=== PATIENT | female | born 1985 | race Caucasian/White ===

== ENCOUNTER → 2020-04-19 12:49 | Outpatient (BNVA) | payer BC, SELFPAY | PROVIDERS: Visit Provider Physician Assistant | DX: E66.9 Obesity, unspecified (principal); Z79.899 Other long term (current) drug therapy; Z98.84 Bariatric surgery status ==

== ENCOUNTER 2020-05-03 08:10 | Outpatient (REF) | payer BC, SELFPAY ==
--- NOTE | 2020-05-03 08:14 | FL_ITS ---
EXAMINATION: XR GI SERIES CLINICAL INFORMATION: Obesity. COMPARISON: None. TECHNIQUE: Routine upper GI air contrast study was performed in upright and lying position. FINDINGS: Following oral administration of thick barium and effervescent granules, there is normal propagation of bolus from the oral cavity through the pharynx and esophagus and into the stomach without intraluminal filling defect, narrowing or stricture. No laryngeal penetration or aspiration seen. On placing patient supine and prone lying, there is previous gastric reduction/surgical changes with a small stomach and widely patent gastrojejunal anastomosis. There is a large gastroesophageal reflux but no hiatal hernia seen. FLUOROSCOPY TIME: 1.1 minute. DOSE AREA PRODUCT: 20.978 uGy-m2 (microgray-meter squared). IMPRESSION: Status post gastric reduction surgery with widely patent gastrojejunal anastomosis with spontaneous emptying of gastric contents into the small bowel loops. There is [id number] gastroesophageal reflux but no hiatal hernia.
== END 2020-05-03 08:11 | disposition home or self-care (01) ==
LOC: HO.XRAY 08:10
PROVIDERS: PCP Internal Medicine; Visit Provider Surgery
DX: Z01.818 Encounter for other preprocedural examination (principal); E66.9 Obesity, unspecified; K21.9 Gastro-esophageal reflux disease without esophagitis
CPT/HCPCS: 74240

== ENCOUNTER → 2020-05-04 07:56 | Outpatient (BNVA) | payer BC, SELFPAY | PROVIDERS: PCP Internal Medicine; Visit Provider Physician Assistant | DX: Z76.89 Persons encountering health services in other specified circumstances (principal) ==

== ENCOUNTER 2020-05-25 11:43 | Day surgery (SDC) | payer BC, SELFPAY ==
[2020-05-19 19:25] VITALS: BMI 31.3
--- NOTE | 2020-05-24 09:27 | HO.ANESPROP2 ---
HPI - Anesthesia Eval Consult details Narrative: 35yo F for Upper Endoscopy PMFSH Past Medical History Medical History Anxiety Breast implant in situ Depression GERD (gastroesophageal reflux disease) IUD (intrauterine device) in place Obesity Family History Family History Father Whipple's disease Mother Breast cancer Type 2 diabetes mellitus Daughter No problems noted. Brother No problems noted. Brother No problems noted. Sister No problems noted. Surgical History Surgical History H/O abdominoplasty H/O gastric bypass Social History Social History Smoking Status: Never smoker Second Hand Smoke Exposure: No Meds Allergies Allergy/AdvReac Type Severity Reaction Status Date / Time No Known Allergies Allergy Verified 05/19/20 19:13 Home Medications Medication Instructions Recorded Confirmed Type bupropion HCl 300 mg 24 hr tablet, 300 mg PO QAM 04/19/20 05/19/20 History extended release levonorgestrel 20 mcg/24 hours (6 20 mcg INTRAUTERINE DAILY 04/19/20 05/19/20 History yrs) 52 mg intrauterine device sertraline 100 mg tablet 100 mg PO DAILY 04/19/20 05/19/20 History trazodone 100 mg tablet 100 mg PO BEDTIME PRN 04/19/20 05/19/20 History Exam Exam Date and Time: May 24, 2020926 Height,Weight and Vital Signs: Height 5 ft 7 in Weight 90.718 kg
== END 2020-05-25 23:59 ==
LOC: HO.SSS 11:44
PROVIDERS: PCP Internal Medicine; Visit Provider Surgery
DX: K21.9 Gastro-esophageal reflux disease without esophagitis (principal); Z53.9 Procedure and treatment not carried out, unspecified reason; Z98.84 Bariatric surgery status; Z98.82 Breast implant status; Z97.5 Presence of (intrauterine) contraceptive device; F32.9 Major depressive disorder, single episode, unspecified; Z79.899 Other long term (current) drug therapy

== ENCOUNTER 2020-05-25 12:17 | Outpatient (REF) | payer BC, SELFPAY ==
--- NOTE | 2020-05-25 12:19 | CT_ITS ---
EXAMINATION: CT ABDOMEN AND PELVIS WITH CONTRAST CLINICAL INFORMATION: Bariatric surgery COMPARISON: Previous upper GI 05/03/2020 TECHNIQUE: Multidetector volumetric images were obtained from the superior aspect of the liver through the pubic symphysis following administration 85 mL of Omnipaque 350 intravenous contrast. Sagittal and coronal reformatted images were obtained on the technologist's workstation. Oral contrast: No This CT examination was performed using dose optimization techniques as appropriate, variously including the following: *Automated exposure control *Adjustment of mA and/or kV according to patient size (this includes techniques or standardized protocols for targeted exams where dose is matched to indication/reason for exam; i.e. extremities or head) *Use of iterative reconstruction technique DLP: 5-6 mGy-cm FINDINGS: LUNG BASES: The visualized lung bases are clear. There is a left breast implant. LIVER, GALLBLADDER, AND BILIARY TREE: The liver is normal in size, shape, and attenuation. No focal hepatic lesion or biliary ductal dilatation is present. The gallbladder is unremarkable with no evidence of radiopaque gallstones, gallbladder wall thickening, or obvious pericholecystic inflammatory changes. PANCREAS: Unremarkable. SPLEEN: Unremarkable. ADRENAL GLANDS: Unremarkable. KIDNEYS AND URETERS: There is a small 6 mm low-attenuation lesion in the upper pole the left kidney axial image 23 series 3 questionable for small angiomyolipoma versus cyst. There is a a second smaller similar-appearing lesion in the lower pole the left kidney axial image 32 series 3. BLADDER: Unremarkable. GASTROINTESTINAL TRACT: There are postoperative changes from gastric bypass. No leak fluid collection or air collection is seen in the left upper quadrant. The small and large bowel are otherwise unremarkable. The appendix is unremarkable. ABDOMINAL WALL: No significant hernia is appreciated. LYMPH NODES: Normal. VASCULAR: Unremarkable. PELVIC VISCERA: There is an IUD in the uterus in satisfactory position. OSSEOUS STRUCTURES: Unremarkable. CT/CT abdomen pelvis w con IMPRESSION: Postoperative changes from gastric bypass. Probable small left renal angiomyolipomas or cysts. IUD in the uterus in satisfactory position.
[2020-05-25] MEDS: iohexoL 350 MG/ML 100 ML INFUS..BTL IV (14:55)
== END 2020-05-25 12:18 | disposition home or self-care (01) ==
LOC: HO.CT 12:17
PROVIDERS: Visit Provider Surgery
DX: R10.11 Right upper quadrant pain (principal); Z98.84 Bariatric surgery status
CPT/HCPCS: 74177; Q9967

== ENCOUNTER 2020-06-01 08:01 | Day surgery (SDC) | payer BC, SELFPAY ==
[2020-05-31 10:18] VITALS: BMI 31.3
[2020-06-01 08:17] VITALS: BP 132/90; PULSE 78; RESP 16; TEMP 36.6; O2SAT 97
[2020-06-01] MEDS: Lactated Ringers 1,000 ML 100 ML IVCONT (08:43)
--- NOTE | 2020-06-01 10:02 | HO.ANESPROP2 ---
[facility] Past Medical History Medical History Anxiety Breast implant in situ Depression GERD (gastroesophageal reflux disease) IUD (intrauterine device) in place Obesity Family History Family History Father Whipple's disease Mother Breast cancer Type 2 diabetes mellitus Daughter No problems noted. Brother No problems noted. Brother No problems noted. Sister No problems noted. Surgical History Surgical History H/O abdominoplasty H/O gastric bypass Social History Social History Smoking Status: Never smoker Second Hand Smoke Exposure: No Use of substances other than those prescribed or required for medical reasons: No Advance Directives: No Advance Directives Information Provided: No Advance Directives on File: No Meds Allergies Allergy/AdvReac Type Severity Reaction Status Date / Time No Known Allergies Allergy Verified 05/19/20 19:13 Home Medications Medication Instructions Recorded Confirmed Type bupropion HCl 300 mg 24 hr tablet, 300 mg PO QAM 04/19/20 05/19/20 History extended release levonorgestrel 20 mcg/24 hours (6 20 mcg INTRAUTERINE DAILY 04/19/20 05/19/20 History yrs) 52 mg intrauterine device sertraline 100 mg tablet 100 mg PO DAILY 04/19/20 05/19/20 History trazodone 100 mg tablet 100 mg PO BEDTIME PRN 04/19/20 05/19/20 History Exam Exam Date and Time: June 01, 2020 1002 Height,Weight and Vital Signs: Height 5 ft 7 in Weight 90.718 kg Last Vital Signs Temp 98 F 06/01/20 08:17 Pulse 78 06/01/20 08:17 Resp 16 06/01/20 08:17 BP 132/90 H 06/01/20 08:17 Pulse Ox 97 06/01/20 08:17 Airway Mallampati Class: II TM Dist: >3cm Neck ROM: Full
--- NOTE | 2020-06-01 10:38 | MHC.SHP ---
Pre-Procedural Eval Section A The patient is an INPATIENT: No The History & Physical has been completed within 30 days and I have reviewed it.: Yes Section B Chief Complaint: s/p bypass,gerd Details of Present Illness: GERD, no restriction, s/p gastric bypass Relevant Social History: None Present Medications: see Short Stay Collaborative assessment Medical History: No relevant PMH History of Previous Operations: Relevant previous surgery/procedure and date(s) (laparoscopic gastric bypass) Allergies: Allergies Allergy/AdvReac Type Severity Reaction Status Date / Time No Known Allergies Allergy Verified 05/19/20 19:13 Review of Systems Sugical H&P ROS: Negative: Constitution, Cardiovascular, Respiratory, Neurological, Psychiatric, Hem-Onc, Allergic/Immunologic, Gastrointestinal, Genitourinary, Musculoskeletal, Integumentary, Endocrine and Eyes/Ears/Nose/Throat Exam Surgical H&P Exam: Normal: HEENT, Normal: Heart, Normal: Lungs, Normal: Extremities, Normal: Abdomen, Normal: Skin and Normal: Neurological Plan Diagnosis/Plan: Unchanged (Upper endoscopy to assess patient's symptoms) Patient has been examined and remains a candidate for the planned procedure
--- NOTE | 2020-06-01 11:16 | PM.OP ---
Brief Operative Note Date of Service: 06/01/20 Pre-op diagnosis: GERD, no restriction, s/p gastric bypass Post-op diagnosis: same Procedure: PROCEDURE DATE: 07/29/2019 PREOPERATIVE DIAGNOSIS: GERD, lack of restriction s/p gastric bypass POSTOPERATIVE DIAGNOSIS: Same as above. 1) Very redundant gastric pouch, 2) Candy cane gastro-jejunostomy, 3) hiatal hernia PROCEDURE: Zwgncdev-jlmxql-apcugynemal with biopsies Surgeon: Edison Lou M.D.. Ph.D. Baseball Winder: None Anesthesia: IV sedation Estimated blood loss: Minimal FINDINGS AND PROCEDURE: OPERATIVE INDICATIONS: The patient is a 35 year old female known to me who underwent a laparoscopic gastric bypass elsewhere. The patient had inadequate weight loss so far and has GERD. Based on this information I recommended an upper endoscopy to evaluate the patient's symptoms. Risks and complications of the surgery were discussed with the patient in advance particularly the possibility of perforation or bleeding that may require surgical intervention. The patient understood the risks and was in agreement with the plan. PROCEDURE: After informed consent was obtained by the patient, the patient was transferred to the Operating Room and was placed in the supine position. After successful induction of IV sedation, a mouth block was placed and the patient was placed in the left lateral decubitus position. An upper endoscopy was performed next, the oropharynx and esophagus appeared within the normal limits. There was a 2cm hiatal hernia. The z-line was smooth. Two biopsies were obtained from the distal esophagus 2-3 cm proximal to the GE junction and two biopsies from the GE junction. The small pouch was entered. It was short. GEJ was at 38cm from incisors and and GJ anastomosis at 41cm. There was significant lateral redundancy of the pouch with scope being able to do a complete retroflexion. There was no gastritis and the gastrojejunostomy was patent. A biopsy was obtained from the gastric pouch. No significant bleeding was noted from any of the biopsy sites. There was no anastomotic ulcer. The scope was advanced into the Kike limb. There was significant elongation of the blind end of the Kike limb (candy cane). At that point the scope was advanced into the proximal small intestine (proximal Kike limb) up to 50cm from incisors, which appeared to be normal. The Kike limb and the pouch were decompressed and the scope was withdrawn from the patient's mouth. The patient was awaken and was transferred in stable condition to the Recovery Room for further care. I was present and performed all steps of the procedure. There were no residents to assist with this case. Edison Lou M.D., Ph.D. Surgeon: Fidel Lou MD Anesthesia: MAC Estimated blood loss (mL): 5 IV fluids (mL): 300 Urine output (mL): 0 (No Cody to record) Pathology: other (1) GEJ x2, 2) distal esophagus x2, 3) gastric pouch x1) Condition: stable Disposition: PACU
[2020-06-01 11:18] VITALS: BP 136/93; PULSE 89; RESP 12; TEMP 37; O2SAT 100
[2020-06-01 11:35] VITALS: BP 132/90; PULSE 70; RESP 16; TEMP 37.1; O2SAT 99
--- NOTE | 2020-06-01 11:58 | HO.POSTANES ---
Post Anesthesia Evaluation Post Anesthesia Evaluation Vital Signs: Vital Signs Temp Pulse Resp BP Pulse Ox 06/01/20 11:35 98.8 F 70 16 132/90 H 99 06/01/20 11:18 98.6 F 89 12 136/93 H 100 06/01/20 08:17 98 F 78 16 132/90 H 97 Anesthesia: Monitored Mental Status: Awake Pain Control: Satisfactory Nausea/Vomiting: None Hydration: Adequate Anesthesia-Related Issues: No Anes. Related Issues
== END 2020-06-01 12:00 | disposition home or self-care (01) ==
PROVIDERS: PCP Internal Medicine; Visit Provider Surgery
PROC: 0DJ08ZZ Inspection of Upper Intestinal Tract, Via Natural or Artificial Opening Endoscopic (ICD-10-PCS; CPT 43235; principal; 2020-06-01 09:10)
DX: K21.9 Gastro-esophageal reflux disease without esophagitis (principal); Z98.84 Bariatric surgery status; K44.9 Diaphragmatic hernia without obstruction or gangrene; E66.9 Obesity, unspecified; Z79.899 Other long term (current) drug therapy; Z98.82 Breast implant status; Z97.5 Presence of (intrauterine) contraceptive device
CPT/HCPCS: 43239; 88305; 88342; J1100; J2250

== ENCOUNTER → 2020-06-05 07:29 | Outpatient (BNVA) | payer BC, SELFPAY | PROVIDERS: PCP Internal Medicine; Visit Provider Surgery | DX: Z76.89 Persons encountering health services in other specified circumstances (principal) ==

== ENCOUNTER 2020-06-06 11:55 | Outpatient (REF) | payer BC, SELFPAY ==
--- NOTE | 2020-06-06 12:04 | ECG_ITS ---
Test Reason : SOB Blood Pressure : / mmHG Vent. Rate : 070 BPM Atrial Rate : 070 BPM P-R Int : 132 ms QRS Dur : 080 ms QT Int : 396 ms P-R-T Axes : 031 019 031 degrees QTc Int : 427 ms Normal sinus rhythm Normal ECG No previous ECGs available Referred By: Fidel Lou Electronically Signed By:DAKOTA WOOTEN MD
--- NOTE | 2020-06-06 12:18 | XR_ITS ---
EXAMINATION: XR CHEST CLINICAL INFORMATION: Diaphragmatic hernia. COMPARISON: None. TECHNIQUE: 2 views of the chest were obtained. FINDINGS: No significant abnormality is noted involving the heart, lungs, mediastinum, bony thorax or soft tissues. XR/XR chest 2V IMPRESSION: Unremarkable examination.
[2020-06-07 13:37] LABS: H Pylori Breath Test NOT DETECTED (NOT DETECTED)
== END 2020-06-06 11:56 | disposition home or self-care (01) ==
LOC: HO.XRAY 11:55
PROVIDERS: PCP Internal Medicine; Visit Provider Surgery
DX: Z01.818 Encounter for other preprocedural examination (principal); K44.9 Diaphragmatic hernia without obstruction or gangrene; E66.9 Obesity, unspecified; K21.9 Gastro-esophageal reflux disease without esophagitis; R06.02 Shortness of breath; Z98.84 Bariatric surgery status
CPT/HCPCS: 71046; 83013; 93005

== ENCOUNTER 2020-06-22 09:50 | Outpatient (REF) | payer BC, SELFPAY ==
--- NOTE | 2020-06-22 09:54 | US_ITS ---
EXAMINATION: US COMPLETE ABDOMEN WITH LIVER ELASTOGRAPHY CLINICAL INFORMATION: Diaphragmatic hernia. COMPARISON: None. TECHNIQUE: Real-time imaging of the abdominal viscera. Noninvasive ultrasound liver fibrosis assessment is performed using Gary ElastPQ point quantification shear wave elastography (pSWE) with a 5 MHz transducer. Multiple elastography samples are obtained. FINDINGS: PANCREAS: The tail of pancreas not visualized due to overlying gas. The visualized pancreatic body are normal in appearance. The remainder of the pancreas is obscured from visualization by the overlying bowel gas. ABDOMINAL AORTA: The proximal, middle, and distal aortic segments are normal in caliber. INFERIOR VENA CAVA: Visualized portions are normal. LIVER: The liver demonstrates normal size, contour and normal echogenicity. There is a hyperechoic area in the right hepatic lobe measuring 3.1 x 2.4 x 2.5 cm, likely a hemangioma versus focal fatty infiltration. The right lobe measures 10.5 cm in length. The left lobe measures 10.2 cm in length. Normal hepatopedal flow seen in the mid portal vein on Doppler exam. Shear wave elastography provides a median stiffness of 1.0 m/s (reference: normal median stiffness is 0.81 - 1.22 m/s). The IQR/median stiffness to assess sampling precision is 0.12 (reference: optimal IQR/median stiffness is under 0.3). GALLBLADDER: Normal. The gallbladder is physiologically distended without evidence of stones, sludge, polyps, wall thickening or pericholecystic fluid. COMMON BILE DUCT: Normal in caliber measuring 0.3 cm in diameter. RIGHT KIDNEY: There is a hyperechoic lesion in the upper pole suspicious of a small angiomyolipoma, it measures 0.4 x 0.5 x 0.5 cm. A second hyperechoic lesion partially exophytic in the midpole, measures 1.1 x 1.1 x 1.0 cm. No renal calculi or focal parenchymal lesions. The kidney measures 10.5 cm in maximum dimension. LEFT KIDNEY: There is small hyperechoic lesion in the midpole likely angiomyolipoma measuring 0.8 x 0.9 x 0.1 cm. No hydronephrosis. No renal calculi or focal parenchymal lesions. The kidney measures 10.2 cm in maximum dimension. SPLEEN: Normal. The spleen measures 10.0 cm in maximum dimension. FREE FLUID: None. US/US abdomen comp w elastography IMPRESSION: 1. Likely focal fatty infiltration versus hemangioma, right hepatic lobe. Rest of the liver is unremarkable. Hepatopedal flow seen in the middle portal vein. 2. Angiomyolipoma, right kidney. The larger lesion is partially exophytic, question hemangioma versus angiomyolipoma. 3. Small angiomyolipoma, left kidney. 4. Elastography: Liver elastography measurements are within normal (METAVIR Stage F0).
[2020-06-22 10:47] LABS: MANUAL DIFF FLAG NO
[2020-06-22 11:05] LABS: Basophils Absolute Auto 0.1 X10*3/uL (0.0-0.2); Basophils Percent Auto 2.1 % (0-2); Eosinophils Absolute Auto 0.1 X10*3/uL (0.0-0.4); Eosinophils Percent Auto 2.6 % (0-4); Hematocrit 43.1 % (37-47); Hemoglobin 14.1 g/dl (12.0-16.0); Lymphocytes Absolute Auto 1.3 X10*3/uL (1.2-4.9); Lymphocytes Percent Auto 33.2 % (20-40); Mean Corpuscular HGB Conc 32.7 g/dl (31.0-35.0); Mean Corpuscular Hemoglobin 30.3 pg (27.0-33.0); Mean Corpuscular Volume 92.5 fL (80-98); Mean Platelet Volume 9.9 fL (9.4-12.3); Monocytes Absolute Auto 0.4 X10*3/uL (0.1-1.2); Monocytes Percent Auto 10.7 % (2-11); Neutrophils Percent Auto 51.4 % (45-73); Platelet Count 311 X10*3/uL (160-400); Red Blood Count 4.66 X10*6/uL (4.20-5.50); Red Cell Distribution Width 13.1 % (11.0-16.0); White Blood Count 3.8 X10*3/uL (4.8-10.8)
[2020-06-22 11:23] LABS: Estimated Average Glucose 82 mg/dL; Hemoglobin A1c % 4.5 %
[2020-06-22 11:54] LABS: Alanine Aminotransferase 16 U/L (0-31); Albumin Level 4.4 g/dL (3.5-5.0); Alkaline Phosphatase 55 U/L (39-117); Anion Gap 17 (12-20); Aspartate Amino Transferase 26 U/L (5-31); Bilirubin Total 0.5 mg/dL (0.0-1.0); Blood Urea Nitrogen 10 mg/dL (9-16); C Reactive Protein 0.08 mg/dL (< or = 0.50); Calcium 9.1 mg/dL (8.4-10.2); Carbon Dioxide 25 mmol/L (22-29); Chloride 102 mmol/L (96-108); Cholesterol 176 mg/dL; Estimated Glomerular Filt Rate > 60; Glucose Random 79 mg/dL (60-115); HDL Cholesterol 73 mg/dL; LDL Cholesterol Calculated 88 mg/dl; Potassium 4.6 mmol/l (3.3-5.1); Sodium 139 mmol/L (135-145); Total Protein 6.9 g/dL (6.5-8.0); Triglycerides 76 mg/dL
[2020-06-22 12:06] LABS: Folate > 20.0 ng/mL (> or = 4.0); Vitamin B12 444 pg/mL (200-900)
[2020-06-22 12:17] LABS: Ferritin 21 ng/mL (10-122); TSH reflex Free T4 0.81 mIU/mL (0.32-4.0); Vitamin D 25-OH Total 35.5 ng/mL (>30)
[2020-06-23 20:32] LABS: Insulin Level Total 1.9 uIU/mL
[2020-06-23 21:43] LABS: Calcium (PTHI) 9.4 mg/dL (8.6-10.2); PTHI 21 pg/mL (14-64)
[2020-06-26 03:06] LABS: Zinc 70 mcg/dL (60-130)
[2020-06-26 13:07] LABS: Vitamin B1 12 nmol/L (8-30)
[2020-06-28 22:58] LABS: Vitamin A 36 mcg/dL (38-98)
== END 2020-06-22 09:51 | disposition home or self-care (01) ==
LOC: HO.US 09:50
PROVIDERS: PCP Internal Medicine; Visit Provider Surgery
DX: Z01.818 Encounter for other preprocedural examination (principal); E66.01 Morbid (severe) obesity due to excess calories; K44.9 Diaphragmatic hernia without obstruction or gangrene
CPT/HCPCS: 36415; 76705; 76981; 80053; 80061; 82306; 82607; 82728; 82746; 83036; 83525; 83970; 84425; 84443; 84590; 84630; 85025; 86140

== ENCOUNTER → 2020-06-28 08:36 | Outpatient (BNVA) | payer BC, SELFPAY | PROVIDERS: PCP Internal Medicine; Visit Provider Surgery | DX: Z76.89 Persons encountering health services in other specified circumstances (principal) ==

== ENCOUNTER → 2020-06-29 09:23 | Outpatient (BNVA) | payer BC, SELFPAY | PROVIDERS: PCP Internal Medicine; Referring Provider Internal Medicine; Visit Provider Dietitian, Registered | DX: Z76.89 Persons encountering health services in other specified circumstances (principal) ==

== ENCOUNTER 2020-07-06 07:14 | Outpatient (REF) | payer BC, SELFPAY ==
[2020-07-06 10:58] LABS: MANUAL DIFF FLAG NO
[2020-07-06 11:05] LABS: Basophils Absolute Auto 0.1 X10*3/uL (0.0-0.2); Basophils Percent Auto 1.4 % (0-2); Eosinophils Absolute Auto 0.1 X10*3/uL (0.0-0.4); Eosinophils Percent Auto 2.4 % (0-4); Hematocrit 42.2 % (37-47); Imm Gran Abs Auto 0.01 X10*3/uL (0.00-0.03); Imm Gran Pct Auto 0.2 % (0.0-0.4); Lymphocytes Absolute Auto 1.5 X10*3/uL (1.2-4.9); Lymphocytes Percent Auto 29.2 % (20-40); Mean Corpuscular HGB Conc 33.2 g/dl (31.0-35.0); Mean Corpuscular Hemoglobin 30.9 pg (27.0-33.0); Mean Corpuscular Volume 93.2 fL (80-98); Monocytes Absolute Auto 0.4 X10*3/uL (0.1-1.2); Neutrophils Absolute Auto 2.9 X10*3/uL (2.0-8.3); Neutrophils Percent Auto 58.8 % (45-73); Platelet Count 312 X10*3/uL (160-400); Red Blood Count 4.53 X10*6/uL (4.20-5.50); Red Cell Distribution Width 13.2 % (11.0-16.0)
[2020-07-06 11:17] LABS: Alanine Aminotransferase 19 U/L (0-31); Albumin Level 4.3 g/dL (3.5-5.0); Alkaline Phosphatase 56 U/L (39-117); Anion Gap 14 (12-20); Aspartate Amino Transferase 29 U/L (5-31); Bilirubin Total 0.5 mg/dL (0.0-1.0); Blood Urea Nitrogen 8 mg/dL (9-16); C Reactive Protein 0.07 mg/dL (< or = 0.50); Calcium 8.8 mg/dL (8.4-10.2); Carbon Dioxide 24 mmol/L (22-29); Chloride 104 mmol/L (96-108); Cholesterol 155 mg/dL; Estimated Glomerular Filt Rate > 60; Glucose Random 88 mg/dL (60-115); HDL Cholesterol 74 mg/dL; LDL Cholesterol Calculated 70 mg/dl; Potassium 4.6 mmol/l (3.3-5.1); Sodium 137 mmol/L (135-145); Total Protein 6.9 g/dL (6.5-8.0); Triglycerides 58 mg/dL
[2020-07-06 11:19] LABS: INTERNATIONAL NORM RATIO 0.9 (0.9-1.1); Prothrombin Time 10.9 SEC (10.8-13.0)
[2020-07-06 11:22] LABS: Partial Thromboplastin Time 37.1 SEC (24.1-38.0)
[2020-07-06 11:31] LABS: Estimated Average Glucose 85 mg/dL; Hemoglobin A1c % 4.6 %
[2020-07-06 11:39] LABS: TSH reflex Free T4 1.57 mIU/mL (0.32-4.0)
[2020-07-07 13:17] LABS: Insulin Level Total 9.9 uIU/mL
== END 2020-07-06 07:15 | disposition home or self-care (01) ==
LOC: HO.LAB 07:14
PROVIDERS: PCP Internal Medicine; Visit Provider Surgery
DX: K21.9 Gastro-esophageal reflux disease without esophagitis (principal)
CPT/HCPCS: 36415; 80053; 80061; 83036; 83525; 84443; 85025; 85610; 85730; 86140

== ENCOUNTER 2020-07-11 06:06 | Inpatient (IN) | payer BC, SELFPAY ==
[2020-07-06 09:55] VITALS: BMI 65.2
--- NOTE | 2020-07-10 10:21 | HO.ANESPROP2 ---
HPI - Anesthesia Eval Consult details Narrative: 35yo F for Gastric Bypass Revision Laparoscopic PMFSH Past Medical History Medical History (Updated 07/14/20 @ 00:01 by Allie Herzog) Anxiety Breast implant in situ Depression GERD (gastroesophageal reflux disease) IUD (intrauterine device) in place Liver hemangioma Renal angiolipoma Vitamin B12 deficiency Family History Family History Father Whipple's disease Mother Breast cancer Type 2 diabetes mellitus Daughter No problems noted. Brother No problems noted. Brother No problems noted. Sister No problems noted. Surgical History Surgical History (Updated 07/17/20 @ 08:06 by Fidel Lou MD) H/O abdominoplasty H/O gastric bypass History of esophagogastroduodenoscopy (EGD) History of sleeve gastrectomy Obesity Overweight Social History Social History Alcohol intake: current Alcohol intake frequency: a few times a month Smoking Status: Never smoker service: No Current occupational status: employed Meds Allergies Allergy/AdvReac Type Severity Reaction Status Date / Time No Known Allergies Allergy Verified 07/17/20 07:24 Home Medications Medication Instructions Recorded Confirmed Type bupropion HCl 300 mg 24 hr tablet, 300 mg PO QAM 04/19/20 07/06/20 History extended release levonorgestrel 20 mcg/24 hours (6 20 mcg INTRAUTERINE DAILY 04/19/20 07/06/20 History yrs) 52 mg intrauterine device sertraline 100 mg tablet 100 mg PO DAILY 04/19/20 07/06/20 History trazodone 100 mg tablet 100 mg PO BEDTIME PRN 04/19/20 07/06/20 History Exam Exam Date and Time: July 10, 2020 1021 Height,Weight and Vital Signs: Height 5 ft 7 in Weight 189 kg Pertinent Lab Results Pertinent Lab Results: Laboratory Tests 07/06/20 10:09 Blood Type O Positive Antibody Screen NEGATIVE Laboratory Tests 07/06/20 07/06/20 10:10 10:19 WBC 5.0 Hgb 14.0 Hct 42.2 Plt Count 312 Sodium 137 Potassium 4.6 Chloride 104 Carbon Dioxide 24 BUN 8 L Creatinine 0.74 Narrative Narrative: EKG 06/06/20: NSR Assessment and Plan Assessment Anesthesia Assessment: Chart Reviewed
--- NOTE | 2020-07-10 18:19 | P.HPSUR_ITS ---
Pre-Procedural Eval Section A The patient is an INPATIENT: Yes The History & Physical has been completed within 30 days and I have reviewed it.: Yes Section B Chief Complaint: severe obesity to excess calories Details of Present Illness: GERD, technical complication of previous surgery Relevant Family History (Specify if Yes): No Relevant Social History: None Present Medications: see Short Stay Collaborative assessment Medical History: No relevant PMH History of Previous Operations: Relevant previous surgery/procedure and date(s) (Laparoscopic gastric bypass) Allergies: Allergies Allergy/AdvReac Type Severity Reaction Status Date / Time No Known Allergies Allergy Verified 07/06/20 08:40 Review of Systems Sugical H&P ROS: Negative: Constitution, Cardiovascular, Respiratory, Ne urological, Psychiatric, Hem-Onc, Allergic/Immunologic, Gastrointestinal, Genitourinary, Musculoskeletal, Integumentary, Endocrine and Eyes/Ears/Nose/Throat Exam Surgical H&P Exam: Normal: HEENT, Normal: Heart, Normal: Lungs, Normal: Extremities, Normal: Abdomen, Normal: Skin and Normal: Neurological Plan Diagnosis/Plan: Unchanged I have reviewed the history and physical and performed a pertinent physical examination on my patient. No changes have occurred unless specified.
[2020-07-11] VITALS (17 sets, daily range): BP systolic 119–149; BP diastolic 68–94; PULSE 79–119; RESP 14–18; TEMP 36.1–36.9; O2SAT 94–100; BMI 29.6
[2020-07-11 06:47] LABS: UPreg QC Valid YES; Urine Pregnancy NEGATIVE (NEGATIVE)
[2020-07-11] MEDS: Lactated Ringers 1,000 ML 100 ML IVCONT (06:55)
[2020-07-11] MEDS: Lactated Ringers 1,000 ML 999 ML IVCONT (06:55)
[2020-07-11] MEDS: ceFAZolin Sodium/Dextrose,Iso 2 GM/50 ML PIGGYBACK IV ×2 (06:56→13:38)
[2020-07-11 07:13] LABS: COVID-19 Test Negative (Negative)
--- NOTE | 2020-07-11 07:18 | HO.ANESPROP2 ---
[facility] Past Medical History Medical History Anxiety Breast implant in situ Depression GERD (gastroesophageal reflux disease) IUD (intrauterine device) in place Vitamin B12 deficiency Family History Family History Father Whipple's disease Mother Breast cancer Type 2 diabetes mellitus Daughter No problems noted. Brother No problems noted. Brother No problems noted. Sister No problems noted. Surgical History Surgical History H/O abdominoplasty H/O gastric bypass History of esophagogastroduodenoscopy (EGD) Obesity Overweight Social History Social History Are you a primary direct care worker to a significant other at home: No Do you presently have visiting nurse or other home services: No Alcohol intake: current Alcohol intake frequency: a few times a month Smoking Status: Never smoker Use of substances other than those prescribed or required for medical reasons: No Advance Directives: No Advance Directives Information Provided: No Advance Directives on File: No Recently lost weight without trying: No Meds Allergies Allergy/AdvReac Type Severity Reaction Status Date / Time No Known Allergies Allergy Verified 07/06/20 08:40 Home Medications Medication Instructions Recorded Confirmed Type bupropion HCl 300 mg 24 hr tablet, 300 mg PO QAM 04/19/20 07/06/20 History extended release levonorgestrel 20 mcg/24 hours (6 20 mcg INTRAUTERINE DAILY 04/19/20 07/06/20 History yrs) 52 mg intrauterine device sertraline 100 mg tablet 100 mg PO DAILY 04/19/20 07/06/20 History trazodone 100 mg tablet 100 mg PO BEDTIME PRN 04/19/20 07/06/20 History Exam Exam Date and Time: July 11, 2020717 Height,Weight and Vital Signs: Height 5 ft 7 in Weight 85.899 kg Last Vital Signs Temp 98.1 F 07/11/20 06:30 Pulse 96 07/11/20 06:30 Resp 16 07/11/20 06:30 BP 128/94 H 07/11/20 06:30 Pulse Ox 96 07/11/20 06:30 Pertinent Lab Results Pertinent Lab Results: Laboratory Tests 12/07/11/20 07/11/20 10:09 06:24 06:24 Urine Test NEGATIVE COVID-19 ([facility]) Negative COVID-19 Clin Com See Note Blood Type O Positive Antibody Screen NEGATIVE Airway Mallampati Class: I TM Dist: >3cm Neck ROM: Full Loose/Missing/Broken Teeth: No Heart: RRR Lungs: CTA Assessment and Plan Assessment Anesthesia Assessment: Anesthesia Plan Discussed and Chart Reviewed Final Anesthetic Review NPO: Yes ASA Class: II Final Preanesthetic Review: Meds/Allgs Chart Reviewed, Consent Obtained/Reviewed and Anes Risks/Benef Reviewed Patient Risk: Low Procedure Risk: Intermediate Anesthetic Plan Anesthetic Plan: GA Disposition: Standard PACU
--- NOTE | 2020-07-11 11:00 | PM.OP ---
Brief Operative Note Date of Service: 07/11/20 Pre-op diagnosis: GERD, incomplete gastric pouch resection, obesity (see comorbidities) Post-op diagnosis: same (& diaphragmatic hernia) Procedure: PROCEDURE: [id number], laparoscopic repair of incarcerated diaphragmatic hernia, extensive laparoscopic lysis of adhesions and laparoscopic sleeve gastrectomy INITIAL PATIENT BMI ON PRESENTATION AT OUR OFFICE: 32.3 kg/m2 LAST BMI BEFORE SURGERY: 29.8 kg/m2 COMORBIDITIES: GERD, technical problem with original gastric bypass operation with incomplete gastric pouch resection, depression, anxiety, liver hemangioma, kidney angiolipoma The patient participated in an intensive weekly lifestyle intervention and exercise program during which the patient has lost between the initial office visit and the last preoperative visit 16.4 lbs, or 7.96% of initial actual body weight. The patient met the BMI-criteria for bariatric surgery based on the BMI on initial presentation. The patient should not be penalized for achieving such weight loss because it is not sustainable long-term without surgical intervention and it was achieved in preparation for bariatric surgery under my direction and based on my published research ([email or web address] and [email or web address]) that a 10% preoperative weight loss improves long-term weight loss after surgery and reduces perioperative complications. Insurance carriers such as [facility] have endorsed my recommendations and have included in their policies criteria to include a 10% preoperative weight loss requirement. INDICATIONS: This is a 35 year-old female with a BMI of 32.2 kg/m2, history of failed gastric bypass surgery and associated comorbid conditions as described previously. After appropriate workup and a 18.4 lbs preoperative weight loss was performed, the patient was electively scheduled for laparoscopic, possible open sleeve gastrectomy of the gastric pouch. The risks and complications of the procedure were discussed with the patient in advance, particularly the possibility of ; pulmonary embolism; staple line leak; bleeding; GERD; cardiac, pulmonary, or renal complications; as well as long-term problems such as insufficient weight loss, vitamin deficiency, strictures, or ulcers. The patient understood all the risks, and was in agreement to proceed with surgery. DESCRIPTION OF PROCEDURE: After informed consent was obtained from the patient, the patient was given preoperative antibiotics, and was transferred to the operating room. After successful induction of general anesthesia, pneumatic compressive devices were placed on both lower extremities. An upper endoscopy was performed next. The oropharynx and esophagus appeared to be within normal limits. There was a diaphragmatic hernia present of moderate size consistent which was not reported at the preoperative upper GI. The stomach was entered. Then after all fluid and air were suctioned and the stomach was fully decompressed, the scope was withdrawn and secured in the mid esophagus. The patient was then prepped and draped in the usual sterile manner, and abdominal access was established at the right upper quadrant with the [place] technique. A 12 mm blunt port was inserted, and the abdomen was insufflated with CO2 to a pressure of 15 mmHg. Under direct visualization, additional ports were placed, specifically two 5 mm Versi-step ports to the left upper quadrant, and a 5 mm Versi-Step port to the right upper quadrant. 1% lidocaine plan was used to infiltrate all port sites as well as all fascia defects. Following that, the patient was placed in a steep reverse Trendelenburg position. An additional 5 mm port was placed to the right flank for the Mediflex retractor that was used to retract the left lobe of the liver. There were adhesions between the undersurface of the left lobe of the liver and the gastric pouch and gastric remnant which were lysed with the Thunderbeat. Once this was done the liver retractor was re-positioned to get exposure to the hiatal area. Some omental fat overlying the Kike limb was mobilized and the gastro-jejunostomy was identified. I continued by dissecting between the gastric remnant and the gastric pouch . There was significant posterior redundancy of the stomach and it appeared that the resection was incomplete as the fundus of the stomach was part of the gastric pouch, extending all the way to spleen. Separation of the gastric pouch from the spleen was difficult because of the severe fibrotic reaction and because the Kike limb which was in a retrocolic retrogastric pouch had been sutures in the entire posterior wall of the pouch. Nevertheless, all these were divided and that allowed exposure to the left marquita. In addition, all sutures between the gastric pouch and Kike limb were identified and were divided. The gastro-esophageal fat pad was opened with the ultrasonic device (Thunderbeat, Olympus) and the anterior esophagus and hiatus were exposed. The angle of His was opened with the ultrasonic device the fundus of the stomach from any diaphragmatic and splenic attachments. Adhesiolysis took approximately 90 min to complete. There was an obvious significant-sized hiatal hernia. I continued dissecting along the hiatus toward the left marquita and the angle of His. I fully mobilized the fat pad that was incarcerated in the hernia. I then continued by dissecting even further into the posterior retro-esophageal space all the way to the angle of His. I continued to mobilize the esophagus into the mediastinum circumferentially. Both vagal nerves were seen and preserved. At that point, I was able to have at least 3 to 5 cm of esophagus into the abdomen. After I completely mobilized the esophagus from both the left and right marquita and I had a good mobilization of the esophagus circumferentially, I closed the hernia defect with three interrupted #0 Surgidac sutures using the Endo Stitch device, one of which was placed posterior and two of which were placed anterior to the esophagus. There was significant redundancy of the stomach laterally and posteriorly. The redundant stomach was then divided with two Endo ANGEL-45 purple and one ANGEL-45 articulating orange loads using the AEON stapler and loads. Every effort was made that the gastric sleeve had a tubular shape and an even caliber throughout. Once the sleeve resection was completed, the staple line of the gastric sleeve was reinforced with Hemoclips. During the sleeve resection, multiple endoscopies were performed before each staple load was fired to ensure that there was no narrowing of the pouch, the gastro-jejunostomy or the Kike limb. This was confirmed endoscopically. Gt staple line was reinforced with hemoclips. The resected stomach was retrieved without difficulty from the Wales[place] port. An upper endoscopy was performed. There was no narrowing at the GE junction. The scope was easily advanced all the way to the pylorus which was clearly visualized. There was no narrowing anywhere and the sleeve's caliber was even throughout. The sleeve's staple line was inspected and there was no evidence of ischemia, bleeding or dehiscence. At that point the gastroscope was withdrawn from the patient?s mouth while we were decompressing the bowel and the stomach from any remaining air. I looked into the lesser sac to see how the sleeve was situating and it was situating well. There was no bleeding from the staple line, spleen, or short gastric vessels. The Mediflex retractor was removed, and the undersurface of the liver was inspected and there was no bleeding. The patient was placed in supine position. I closed the fascial defect of the 12 mm port site with a figure of eight #1 Polysorb suture. Then 100 cc 0.25 % Marcaine plain with 10 mg of Dexamethasone were used to infiltrate the fascial closure as well as all skin incisions. At this point, the abdomen was deflated, all ports were removed under direct vision, and no bleeding was noted from any of the port sites. The skin incisions were irrigated with saline and were closed with 4-0 absorbable monofilament sutures. Steri-Strips and OpSites were used to cover all incisions. The patient was extubated and was transferred in stable condition to the recovery room for further care. I was present and performed all vines parts of the procedure. Ms. Lyons was the operator/assistant foreman. There were no residents to assist with this case. Edison Lou MD, PhD, FACS Surgeon: Fidel Lou MD Anesthesia: GETA, local and other (TAP block) Telephoto Engineer: Caprice Lyons Estimated blood loss (mL): 10 IV fluids (mL): 3,000 Urine output (mL): 100 Pathology: other (stomach) Condition: stable Disposition: PACU
--- NOTE | 2020-07-11 11:01 | PM.DS ---
DS: Providers Provider Date of admission: 07/11/20 06:06 Primary care physician: Clementina Correa MD DS: Medications Discharge Medications Home Medications: Home Medications Medication Instructions Recorded Confirmed bupropion HCl 300 mg 24 hr tablet, 300 mg PO QAM 04/19/20 07/06/20 extended release levonorgestrel 20 mcg/24 hours (6 20 mcg INTRAUTERINE DAILY 04/19/20 07/06/20 yrs) 52 mg intrauterine device sertraline 100 mg tablet 100 mg PO DAILY 04/19/20 07/06/20 trazodone 100 mg tablet 100 mg PO BEDTIME PRN 04/19/20 07/06/20 Previous Rx's Medication Instructions Recorded mecobalamin (vitamin B12) 1,000 1,000 mcg SUBLINGUAL DAILY #30 tab 06/26/20 mcg disintegrating tablet,sublingual ondansetron HCl 4 mg tablet 4 mg PO Q6H PRN #30 tab 07/06/20 pantoprazole 40 mg tablet,delayed 40 mg PO DAILY #30 tab 07/06/20 release polyethylene glycol 3350 17 gram 17 g PO DAILY #14 ea 07/06/20 oral powder packet sucralfate 100 mg/mL oral 10 ml PO BID #420 ml 07/06/20 suspension DS: Summary Time Spent with Patient Time attestation: ADMITTING DIAGNOSIS: morbid obesity, GERD, s/p gastric bypass, anxiety and depression, hiatal hernia DISCHARGE DIAGNOSIS: same, s/p laparoscopic sleeve gastrectomy, hiatal hernia repair and lysis of adhesions PAST SURGICAL HISTORY: Gastric by pass 2004, panniculectomy, breast implants PROCEDURE: upper endoscopy, laparoscopic sleeve gastrectomy, extensive lysis of adhesions, repair of hiatal hernia and upper endoscopy DISCHARGE SUMMARY: History of Present Illness: The patient is a 35year-old woman with a BMI of 32.26 kg/m2 and associated co-morbidities as described above. The patient had extensive work-up,lost 17lbs preoperatively and was electively scheduled for laparoscopic, possible open sleeve gastrectomy and gastropexy. Risks and complications of the surgery were discussed with the patient in advance, particularly the possibility of , pulmonary embolism, anastomotic leak, bleeding, bowel injury, GERD, cardiac, renal or pulmonary complications. The patient understood all the risks and was in agreement with the surgical plan. Hospital Course: The patient underwent an uneventful laparoscopic sleeve gastrectomy, extensive lysis of adhesions, repair of hiatal hernia and upper endoscopy on the day of admission. Postoperatively, the patient was transferred to the surgical floor. The patient was on IV Acetaminophen and IV dilaudid for pain control. Patient was started on bariatric phase 1 diet POD #0. On postoperative day one, the patient was feeling well without nausea, vomiting, fevers, or tachycardia. The patient had some mild incisional pain. The abdomen was soft. On the morning of postoperative day one, the patient was continued on 1 ounce of water or ice every half hour. During the first day, the patient did fairly well, having some incisional pain, but able to ambulate adequately and to tolerate liquids well. Since the patient is doing well, we decided that the patient was ready to be discharged. The patient was given instructions to follow-up with me next week and to call my office for any fever over 101, persistent abdominal pain, nausea, vomiting, GERD, symptoms of DVT such as calf tenderness, or leg swelling, or pulmonary embolism such as chest pain or shortness of breath. The patient was also instructed to drink 40-60 ounces of liquids per day using the 1-ounce cups. The patient was given prescription for Tylenol for pain, Zofran prn for nausea, and pantoprazole and carafate. The patient was encouraged to ambulate and use the incentive spirometer. The patient was allowed to shower, but no baths, and encouraged to stay active at home. All of these instructions were given to the patient personally. All questions were answered and the patient understood all instructions, the instructions were also given to the patient in print. Total time spent providing and/or coordinating discharge services: 30 minutes Physical Exam Vital Signs: Vital Signs: Last Vital Signs Temp 98.4 F 07/11/20 10:56 Pulse 119 H 07/11/20 10:56 Resp 14 07/11/20 10:56 BP 149/87 H 07/11/20 10:56 Pulse Ox 99 07/11/20 10:56 Body Mass Index 29.6 DS: Data Data Completed and Pending Pending studies at discharge: Pending at discharge 07/11/20 09:38 Surgical [PTH] Routine Labs on day of discharge: 07/06/20 10:09 Type and Screen Routine 07/10/20 18:30 Lactated Ringers [Lr] 1,000 ml IVCONT 999 mls/hr 07/11/20 06:05 Acetaminophen [Ofirmev] 1,000 mg in 100 ml IV PREOP 07/11/20 06:24 COVID-19 ID NOW (Agarwal) Stat Ur Preg Test Stat 07/11/20 06:30 ceFAZolin Sodium/Dextrose,Iso [Ancef] 2 gm in 50 ml IV PREOP@0630 07/11/20 06:53 Acetaminophen [Ofirmev] 1,000 mg in 100 ml IV As directed ceFAZolin Sodium/Dextrose,Iso [Ancef] 2 gm in 50 ml .ROUTE As directed 07/11/20 07:05 Bupivacaine MPF 0.25 % [Sensorcaine-MPF 0.25% 10 ML] 10 ml .ROUTE .STK-MED ONE Lidocaine HCl 1 % MPF [Xylocaine 1 % MPF] 5 ml .ROUTE .STK-MED ONE 07/11/20 07:08 dexAMETHasone Sod Phosphate/PF [Decadron] 10 mg .ROUTE .STK-MED ONE 07/11/20 07:09 Lidocaine HCl 2 % MPF [Xylocaine 2 % MPF] 5 ml .ROUTE .STK-MED ONE Rocuronium [place] [Zemuron] 100 mg IV .STK-MED ONE 07/11/20 07:10 Ketamine HCl/NS 50 mg IVPUSH .STK-MED ONE Midazolam HCl/PF [Versed] 2 mg .ROUTE .STK-MED ONE fentaNYL citrate/PF [Sublimaze] 50 mcg .ROUTE .STK-MED ONE propofoL [Diprivan] 200 mg IVPUSH .STK-MED ONE 07/11/20 07:57 dexAMETHasone sod phosphate [Decadron] 4 mg .ROUTE .STK-MED ONE ondansetron HCL [Zofran] 4 mg .ROUTE .STK-MED ONE 07/11/20 08:09 HYDROmorphone HCl [Dilaudid] 2 mg .ROUTE .STK-MED ONE 07/11/20 09:04 Rocuronium [place] [Zemuron] 100 mg IV .STK-MED ONE 07/11/20 09:31 propofoL [Diprivan] 200 mg IVPUSH .STK-MED ONE 07/11/20 10:27 Ketamine HCl/NS 50 mg IVPUSH .STK-MED ONE Sugammadex Sodium [Bridion] 200 mg IVPUSH .STK-MED ONE Laboratory Last Values Urine Test NEGATIVE (NEGATIVE) 07/11/20 06:24 COVID-19 ([facility]) Negative (Negative) 07/11/20 06:24 COVID-19 Clin Com See Note 07/11/20 06:24 Blood Type O Positive 07/06/20 10:09 Antibody Screen NEGATIVE 07/06/20 10:09 Discharge Plan Discharge Anticipated Discharge Date/Time: 07/12/20 11:59 Patient Disposition: Home, Self-Care Referrals: Clementina Correa MD [Primary Care Provider] - Discharge Medications: Continued trazodone 100 mg tablet 100 mg PO BEDTIME PRN (Reason: Insomnia) RF: 0 sertraline [Zoloft] 100 mg tablet 100 mg PO DAILY RF: 0 bupropion HCl [Wellbutrin XL] 300 mg tablet extended release 24 hr 300 mg PO QAM RF: 0 Mirena 20 mcg/24 hours (5 yrs) 52 mg intrauterine device 20 mcg intrauterine DAILY RF: 0 pantoprazole 40 mg tablet,delayed release (DR/EC) 40 mg PO DAILY Qty: 30 RF: 2 sucralfate 100 mg/mL suspension 10 ml PO BID Qty: 420 RF: 2 ondansetron HCl [Zofran] 4 mg tablet 4 mg PO Q6H PRN (Reason: nausea and vomiting) Qty: 30 RF: 0 Discontinued mecobalamin (vitamin B12) 1,000 mcg tablet,disintegrating 1,000 mcg sublingual DAILY Qty: 30 RF: 2 polyethylene glycol 3350 [Miralax] 17 gram powder in packet 17 g PO DAILY Qty: 14 RF: 0 Discharge Orders: Discharge Order (Routine); Ordered 07/12/20 Ordered By: Fidel Lou Diet: other Activity on Discharge: No heavy lifting Activity Restrictions/Additional Instructions: No tub baths, sex or returning to work until discussed at first post op appointment. No exercise, alcohol, tobacco or illegal drug use. Continue to use incentive spirometer hourly while awake. Walk in home for 5- 10 minutes every 2 hours during the first week. Continue phase 1 diet today and start phase 2 diet tomorrow morning. Follow all instructions in the bariatric handbook and call with any questions. Visit Report Forms: Patient Portal Discharge page Care Plan Goals: weight loss Health Concerns: obesity Plan of Treatment: see discharge instructions
--- NOTE | 2020-07-11 11:13 | P.PNGS_ITS ---
Subjective Subjective Date of Service: 07/12/20 Interval history: Patient has mild incisional pain. Was able to ambulate and use the incentive spirometer. Had some nausea earlier due to Dilaudid use. Tolerating liquids Physical Exam Vital Signs: Vital Signs: Last Vital Signs Temp 98.4 F 07/11/20 10:56 Pulse 106 H 07/11/20 11:11 Resp 16 07/11/20 11:11 BP 138/82 07/11/20 11:11 Pulse Ox 97 07/11/20 11:11 Body Mass Index 29.6 GI: Inspection: Yes normal to inspection, Yes incision (dry and intact) and Yes obesity Extrem: Right lower extremity: normal to inspection (no calf tenderness) Left lower extremity: normal to inspection (no calf tenderness) Progress Note: A&P Assessment and plan (1) GERD (gastroesophageal reflux disease): Status: Acute (2) Hiatal hernia: Status: Acute Assessment and Plan: 35 year old female was admitted 07/11/20 with GERD, incomplete resection of gastric pouch, obesity and comorbidities. Problem 1: s/p laparoscopic sleeve gastrectomy, hiatal hernia repair and lysis of adhesions Status: Doing well Plan: Check am labs, If OK, will continue phase 1 bariatric diet and discharge later today. (3) Overweight: Status: Acute (4) H/O gastric bypass: Problem details: 2004 [facility] Status: Acute (5) Anxiety: Status: Acute (6) Depression: Status: Acute (7) Intra-abdominal adhesions: Status: Acute (8) Liver hemangioma: Status: Acute (9) Renal angiolipoma: Status: Acute (10) S/P laparoscopic sleeve gastrectomy: Status: Acute (11) S/P repair of paraesophageal hernia: Status: Acute Fall Risk Details Current Medications: Current Medications Generic Name Dose Route Start Last Admin Trade Name Freq PRN Reason Stop Dose Admin Albuterol Sulfate 2.5 mg 07/11/20 07:20 Albuterol Sulfate (0.083%) 2.5 Mg/3 Ml Vial.Neb INHALE ONCE PRN Wheezing Bupropion HCl 300 mg 07/11/20 11:00 Bupropion Hcl Xl 300 Mg Tab.Er.24h PO DAILY HUSSEIN Famotidine 20 mg 07/11/20 11:00 Famotidine/Pf 20 Mg/2 Ml Vial IVPUSH BID HUSSEIN Fentanyl 50 mcg 07/11/20 07:20 Fentanyl Citrate/Pf 100 Mcg/2 Ml Vial IVPUSH Q5M PRN Pain, Severe (Pain Scale 7-10) Fentanyl 25 mcg 07/11/20 07:20 Fentanyl Citrate/Pf 100 Mcg/2 Ml Vial IVPUSH Q5M PRN Pain, Moderate (Pain Scale 4-6 Hydromorphone HCl 0.25 mg 07/11/20 10:52 Hydromorphone Hcl 0.5 Mg/0.5 Ml Syringe IVPUSH Q4H PRN Pain, Moderate (Pain Scale 4-6 Lactated Ringer's 1,000 mls @ 100 mls/hr 07/11/20 06:15 07/11/20 06:55 Lr IVCONT 100 mls/hr .Q10H HUSSEIN Administration Promethazine HCl 6.25 mg/ 50.25 mls @ 201 mls/hr 07/11/20 07:20 Sodium Chloride IV ONCE PRN Nausea and Vomiting Lactated Ringer's 1,000 mls @ 150 mls/hr 07/11/20 11:00 Lr IVCONT .Q6H40M [facility] Cefazolin Sodium/Dextrose 2 gm in 50 mls @ 100 mls/hr 07/11/20 10:52 Ancef IV 07/11/20 11:21 POSTOP ONE Acetaminophen 1,000 mg in 100 mls @ 16.7 mls/hr 07/11/20 15:00 Ofirmev IV 07/14/20 14:51 .Q6H [facility] Metoclopramide HCl 10 mg 07/11/20 10:52 Metoclopramide Hcl 10 Mg/2 Ml Vial IVPUSH Q6H PRN Nausea Ondansetron HCl 4 mg 07/11/20 11:00 Ondansetron Hcl 4 Mg/2 Ml Vial IVPUSH Q8H [facility] Oxycodone HCl 10 mg 07/11/20 07:20 Oxycodone Hcl Immed Release 5 Mg Tablet PO ONCE PRN Pain, Severe (Pain Scale 7-10) Oxycodone HCl 5 mg 07/11/20 07:20 Oxycodone Hcl Immed Release 5 Mg Tablet PO ONCE PRN Pain, Severe (Pain Scale 7-10) Sertraline HCl 100 mg 07/12/20 09:00 Sertraline Hcl 100 Mg Tablet PO DAILY [facility] Sodium Chloride 3 ml 07/11/20 16:00 0.9 % Sodium Chloride Flush 3 Ml Syringe IVFLUSH QSHIFT HUSSEIN Trazodone HCl 100 mg 07/11/20 10:50 Trazodone Hcl 100 Mg Tablet PO BEDTIME PRN Insomnia Time Spent With Patient Time: Total time spent is greater than 50% in coordination of care (as documented) at patient's floor/unit and/or counseling patient: Time with patient: less than 15 minutes
[2020-07-11] MEDS: Famotidine/PF 20 MG/2 ML VIAL IVPUSH ×2 (11:29→20:17)
[2020-07-11 12:04] LABS: Basophils Percent Auto 0.3 % (0-2); Hematocrit 40.5 % (37-47); Hemoglobin 13.4 g/dl (12.0-16.0); Imm Gran Abs Auto 0.02 X10*3/uL (0.00-0.03); Imm Gran Pct Auto 0.2 % (0.0-0.4); Lymphocytes Absolute Auto 0.3 X10*3/uL (1.2-4.9); Lymphocytes Percent Auto 3.3 % (20-40); MANUAL DIFF FLAG SCAN; Mean Corpuscular HGB Conc 33.1 g/dl (31.0-35.0); Mean Corpuscular Hemoglobin 31.3 pg (27.0-33.0); Mean Corpuscular Volume 94.6 fL (80-98); Mean Platelet Volume 9.9 fL (9.4-12.3); Monocytes Absolute Auto 0.1 X10*3/uL (0.1-1.2); Monocytes Percent Auto 1.3 % (2-11); Neutrophils Absolute Auto 8.5 X10*3/uL (2.0-8.3); Neutrophils Percent Auto 94.9 % (45-73); Platelet Count 280 X10*3/uL (160-400); Red Blood Count 4.28 X10*6/uL (4.20-5.50); Red Cell Distribution Width 13.1 % (11.0-16.0); SCAN SMEAR FLAG 1; White Blood Count 8.9 X10*3/uL (4.8-10.8)
[2020-07-11 12:25] LABS: SLIDE REVIEW VERIFIED
[2020-07-11 12:34] LABS: Anion Gap 20 (12-20); Blood Urea Nitrogen 8 mg/dL (9-16); Calcium 8.6 mg/dL (8.4-10.2); Carbon Dioxide 16 mmol/L (22-29); Chloride 104 mmol/L (96-108); Creatinine Clr Calc Pharmacy 117.1; Estimated Glomerular Filt Rate > 60; Glucose Random 133 mg/dL (60-115); Potassium 4.6 mmol/l (3.3-5.1); Sodium 135 mmol/L (135-145)
[2020-07-11] MEDS: Lactated Ringers 1,000 ML 150 ML IVCONT ×2 (13:38→20:15)
[2020-07-11] MEDS: HYDROmorphone HCl 0.5 MG/0.5 ML SYRINGE 0.25 MG IVPUSH ×3 (14:02→20:17)
[2020-07-11] MEDS: 0.9 % Sodium Chloride Flush 3 ML SYRINGE IVFLUSH (15:17)
[2020-07-11] MEDS: ondansetron HCL 4 MG/2 ML VIAL IVPUSH (20:17)
[2020-07-11] MEDS: Sertraline HCL 100 MG TABLET PO (20:34)
[2020-07-11] MEDS: traZODone HCL 100 MG TABLET PO (21:08)
[2020-07-12] MEDS: HYDROmorphone HCl 0.5 MG/0.5 ML SYRINGE 0.25 MG IVPUSH ×3 (01:04→09:18)
[2020-07-12] MEDS: ondansetron HCL 4 MG/2 ML VIAL IVPUSH ×2 (02:42→11:35)
[2020-07-12] MEDS: Lactated Ringers 1,000 ML 150 ML IVCONT ×2 (02:43→09:33)
[2020-07-12 04:00] VITALS: BP 154/82; PULSE 84; RESP 18; TEMP 36.4; O2SAT 99
[2020-07-12 06:56] LABS: Basophils Percent Auto 0.3 % (0-2); Eosinophils Percent Auto 0.2 % (0-4); Hematocrit 39.3 % (37-47); Hemoglobin 13.1 g/dl (12.0-16.0); Imm Gran Abs Auto 0.02 X10*3/uL (0.00-0.03); Imm Gran Pct Auto 0.2 % (0.0-0.4); Lymphocytes Absolute Auto 0.6 X10*3/uL (1.2-4.9); Lymphocytes Percent Auto 5.7 % (20-40); MANUAL DIFF FLAG SCAN; Mean Corpuscular HGB Conc 33.3 g/dl (31.0-35.0); Mean Corpuscular Hemoglobin 31.5 pg (27.0-33.0); Mean Corpuscular Volume 94.5 fL (80-98); Mean Platelet Volume 9.9 fL (9.4-12.3); Monocytes Absolute Auto 0.8 X10*3/uL (0.1-1.2); Neutrophils Absolute Auto 9.3 X10*3/uL (2.0-8.3); Neutrophils Percent Auto 86.6 % (45-73); Platelet Count 286 X10*3/uL (160-400); Red Blood Count 4.16 X10*6/uL (4.20-5.50); Red Cell Distribution Width 12.9 % (11.0-16.0); SCAN SMEAR FLAG 1; White Blood Count 10.7 X10*3/uL (4.8-10.8)
[2020-07-12 07:16] LABS: Anion Gap 15 (12-20); Blood Urea Nitrogen 4 mg/dL (9-16); Calcium 8.3 mg/dL (8.4-10.2); Carbon Dioxide 20 mmol/L (22-29); Chloride 104 mmol/L (96-108); Creatinine Clr Calc Pharmacy 131.3; Estimated Glomerular Filt Rate > 60; Glucose Random 101 mg/dL (60-115); Potassium 4.1 mmol/l (3.3-5.1); Sodium 135 mmol/L (135-145)
[2020-07-12 07:20] VITALS: O2SAT 100
[2020-07-12 07:35] LABS: SLIDE REVIEW VERIFIED
[2020-07-12 07:56] VITALS: BP 173/99; PULSE 95; RESP 19; TEMP 36.6; O2SAT 100
[2020-07-12] MEDS: buPROPion HCl XL 300 MG TAB.ER.24H PO (09:25)
[2020-07-12] MEDS: Famotidine/PF 20 MG/2 ML VIAL IVPUSH (09:25)
[2020-07-12] MEDS: 0.9 % Sodium Chloride Flush 3 ML SYRINGE IVFLUSH (09:25)
--- NOTE | 2020-07-12 11:11 | HO.POSTANES ---
Post Anesthesia Evaluation Post Anesthesia Evaluation Vital Signs: Vital Signs Temp Pulse Resp BP Pulse Ox 07/12/20 07:56 97.8 F 95 19 173/99 H 100 07/12/20 07:20 100 07/12/20 04:00 97.6 F 84 18 154/82 H 99 07/11/20 23:35 97.1 F 86 18 142/84 H 98 Anesthesia: General Endotracheal-GETA Mental Status: Awake Pain Control: Satisfactory Nausea/Vomiting: None Hydration: Adequate Anesthesia-Related Issues: No Anes. Related Issues
[2020-07-12 11:33] VITALS: BP 166/92; PULSE 89; RESP 20; TEMP 36.1; O2SAT 99
--- NOTE | 2020-07-12 12:09 | MHC.CM.PN ---
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 she lives with her step son and her daughter ,she is active ,independent in all adls and mobitiy. 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 she has no vna nor dme services in her home, educated about the importance of having a health care proxy reviewed . at this time patient is not interested in completing one at this time. discharge plan home with no services pcp patient to call for post hospital discharge follow up transportation family bariatric follow -up next week
[2020-07-12] MEDS: Simethicone 80 MG TAB.CHEW PO (13:23)
== END 2020-07-12 14:18 | disposition home or self-care (01) | DRG 220 ==
LOC: HO.SSSA 11:01 → HO.S3 12:20
PROVIDERS: Nurse Practitioner; Physician Assistant; Admitting Provider Surgery; PCP Internal Medicine; Visit Provider Surgery
PROC: 0DQ64ZZ Repair Stomach, Percutaneous Endoscopic Approach (ICD-10-PCS; CPT 43771; principal; 2020-07-11 07:30)
DX: K95.89 Other complications of other bariatric procedure (principal); K44.0 Diaphragmatic hernia with obstruction, without gangrene; E66.9 Obesity, unspecified; K21.9 Gastro-esophageal reflux disease without esophagitis; Z20.828 Contact with and (suspected) exposure to other viral communicable diseases; K66.0 Peritoneal adhesions (postprocedural) (postinfection); Z68.29 Body mass index [BMI] 29.0-29.9, adult; Z98.82 Breast implant status; Z79.899 Other long term (current) drug therapy
CPT/HCPCS: 36415; 80048; 81025; 85025; 86850; 86900; 86901; 87635; 88307; 88342; 99024; J0131; J0690; J1100; J1170; J2250; J2405; J3010

== ENCOUNTER → 2020-07-17 07:21 | Outpatient (BNVA) | payer BC, SELFPAY | PROVIDERS: PCP Internal Medicine; Visit Provider Surgery | DX: Z76.89 Persons encountering health services in other specified circumstances (principal) ==

== ENCOUNTER → 2020-08-18 08:07 | Outpatient (BNVA) | payer BC, SELFPAY | PROVIDERS: PCP Internal Medicine; Visit Provider Surgery ==